=== PATIENT | male | born 1930 | race Caucasian/White ===

== ENCOUNTER 2018-10-03 09:17 | Emergency (ER) | payer MEDICARE ==
[~2018-10-03] VITALS: Ht 182.9 cm; Wt 90.0 kg
[~2018-10-03 09:17] MED LIST: CUBICIN500 MG IV; LOPRESSOR50 M1 PO; PROTONIX40 MG PO; SIMVASTATIN10 MG PO
[2018-10-03 10:57] VITALS: BP 146/73
== END 2018-10-03 10:57 | disposition home or self-care (01) ==
LOC: ED 09:17
PROC: 09C3XZZ Extirpation of Matter from Right External Auditory Canal, External Approach (ICD-10-PCS; principal; 2018-10-03)
DX: T16.1XXA Foreign body in right ear, initial encounter (principal); X58.XXXA Exposure to other specified factors, initial encounter; Y92.009 Unspecified place in unspecified non-institutional (private) residence as the place of occurrence of the external cause